=== PATIENT | female | born 1965 | race Caucasian/White ===

== ENCOUNTER 2019-03-07 19:08 | Emergency (ER) | payer MEDICAID ==
[2019-03-07 19:47] LABS: ABSOLUTE NEUTROPHIL COUNT 4.15; BASO % 0.9 % (0-6); EOS % 6.3 % (0-6); GRAN % 62.6 % (47-80); HEMATOCRIT 42.9 % (35.0-47.0); LYMPH % 19.8 % (16-45); MEAN CELL VOLUME 91.9 fl (81-97); MEAN CORPUSCULAR HGB CONC 32.6 g/dl (32-36); MEAN PLATELET VOLUME 9.6 fl (7.4-10.4); MONO % 10.4 % (0-9); PLATELET COUNT 268 K/uL (130-400); RED BLOOD COUNT 4.67 M/uL (3.80-5.40); RED CELL DISTRIBUTION WIDTH 12.4 % (11.5-14.5); WHITE BLOOD COUNT W/O DIFF 6.6 K/uL (4.2-12.2)
[2019-03-07 19:48] LABS: URINE APPEARANCE CLEAR; URINE BILIRUBIN NEGATIVE (NEGATIVE); URINE BLOOD NEGATIVE (NEGATIVE); URINE COLOR YELLOW; URINE GLUCOSE (UA) NEGATIVE (NEGATIVE); URINE KETONE NEGATIVE (NEGATIVE); URINE LEUKOCYTE ESTERASE NEGATIVE (NEGATIVE); URINE NITRITE NEGATIVE (NEGATIVE); URINE PROTEIN NEGATIVE (NEGATIVE)
[2019-03-07] MEDS: 0.9 % SODIUM CHLORIDE 1,000 ML BAG IV ONE (19:55)
[2019-03-07] MEDS: ONDANSETRON HCL IV 4 MG/2 ML VIAL IVP ONE (19:58)
[2019-03-07 19:59] LABS: BLOOD UREA NITROGEN 17 mg/dL (6-20); CREATININE 0.6 mg/dL (0.5-0.9); EST GLOMERULAR FILTRATION RATE > 60 mL/min
[2019-03-07 20:00] LABS: TOTAL PROTEIN 7.5 g/dL (6.6-8.7)
[2019-03-07 20:02] LABS: GLUCOSE,RANDOM 125 mg/dL (74-109)
--- NOTE | 2019-03-07 20:04 | Emergency Department Record ---
History of Present Illness - General Chief complaint: Female Urogenital Problem Stated complaint: CHILLS,NAUSEA,FLANK/PELVIC PAIN,CANT EAT,CANT SLEE Time Seen by Provider: 03/07/19 19:24 Source: Patient Mode of Arrival: Ambulatory Limitations: No limitations - History of Present Illness Initial comments: pt has multiple complaints. she states she doesnt feel well. she has n/v, cough,chest discomfort,ap, suparapubic pain, palpitations. she had an open fracture in november of her ankle. she just moved here. shes had chills, she had vaginal discharge but no longer MD Complaint: Pelvic pain Onset/Timin -: Week(s) Location: Suprapubic Radiation: L flank, R flank Severity: Moderate Severity scale (1-10): 4 Quality: Aching Consistency: Intermittent Improves with: None Worsens with: None Patient : No Associated Symptoms: Abdominal pain, Fever/chills, Loss of appetite, Nausea/vomiting, Vaginal discharge - Related Data Sexually active: Yes Home Medications Medication Instructions Recorded Confirmed Last Taken Atorvastatin Calcium 10 mg PO DAILY 03/07/19 03/07/19 03/07/19 Carvedilol [Coreg] 12.5 mg PO BID 03/07/19 03/07/19 03/07/19 Furosemide [Lasix] 20 mg PO DAILY 03/07/19 03/07/19 03/07/19 Hydrochlorothiazide [Hctz] 12.5 mg PO DAILY 03/07/19 03/07/19 03/07/19 Levothyroxine Sodium [Synthroid] 100 mcg PO DAILY 03/07/19 03/07/19 03/07/19 Allergies Allergy/AdvReac Type Severity Reaction Status Date / Time No Known Drug Allergies Allergy Verified 03/07/19 19:37 Travel Screening - Travel/Exposure Within Last 30 Days Have you traveled within the last 30 days?: No - Travel Symptoms Symptom Screening: Fever (Subjective), Vomiting, Chills Review of Systems Reviewed: No additional complaints except as noted below Constitutional: Reports: As per HPI, Chills. Denies: Fever, Malaise, Night sweats, Weakness, Weight change Eyes: Reports: As per HPI. Denies: Eye discharge, Eye pain, Photophobia, Vision change ENT: Reports: As per HPI. Denies: Congestion, Dental pain, Ear pain, Epistaxis, Hearing loss, Throat pain Respiratory: Reports: As per HPI, Cough. Denies: Dyspnea, Hemoptysis, Stridor, Wheezes Cardiovascular: Reports: As per HPI. Denies: Arrhythmia, Chest pain, Dyspnea on exertion, Edema, Murmurs, Orthopnea, Palpitations, Paroxysmal nocturnal dyspnea, Rheumatic Fever, Syncope Endocrine: Reports: As per HPI. Denies: Fatigue, Heat or cold intolerance, Polydipsia, Polyuria Gastrointestinal: Reports: As per HPI, Abdominal pain, Nausea, Vomiting. Denie s: Constipation, Diarrhea, Hematemesis, Hematochezia, Melena Genitourinary: Reports: As per HPI. Denies: Abnormal menses, Discharge, Dyspareunia, Dysuria, Frequency, Hematuria, Incontinence, Retention, Urgency Musculoskeletal: Reports: As per HPI. Denies: Arthralgia, Back pain, Gout, Joint swelling, Myalgia, Neck pain Skin: Reports: As per HPI. Denies: Bruising, Change in color, Change in hair/nails, Lesions, Pruritus, Rash Neurological: Reports: As per HPI. Denies: Abnormal gait, Confusion, Headache, Numbness, Paresthesias, Seizure, Tingling, Tremors, Vertigo, Weakness Psychiatric: Reports: As per HPI. Denies: Anxiety, Auditory hallucinations, Depression, Homicidal thoughts, Suicidal thoughts, Visual hallucinations Hematological/Lymphatic: Reports: As per HPI. Denies: Anemia, Blood Clots, Easy bleeding, Easy bruising, Swollen glands Past Medical History - SOCIAL HISTORY Smoking Status: Never smoker Alcohol Use: None Drug Use: None - RESPIRATORY Hx Respiratory Disorders: Yes Hx Pneumonia: Yes - CARDIOVASCULAR Hx Cardio Disorders: Yes Hx Abnormal EKG: Yes Hx Hypertension: Yes Comment:: Takotsubo cardiomyopathy - NEURO Hx Neuro Disorders: No - GI Hx GI Disorders: No - Hx Genitourinary Disorders: Yes Hx UTI: Yes - ENDOCRINE Hx Endocrine Disorders: No - MUSCULOSKELETAL Hx Musculoskeletal Disorders: No - PSYCH Hx Psych Problems: No - HEMATOLOGY/ONCOLOGY Hx Hematology/Oncology Disorders: No Family Medical History Any Significant Family History?: No Family Hx Comment (NOT TO BE USED IN PLACE OF ITEMS BELOW): denies Physical Exam - General General Appearance: Alert, Oriented x3, Cooperative, Mild distress - Head Head exam: Normal inspection - Eye Eye exam: Normal appearance, PERRL, EOMI Pupils: Normal accommodation - ENT ENT exam: Normal exam, Mucous membranes moist, Normal external ear exam, Normal orophraynx Ear exam: Normal external inspection. negative: External canal tenderness Nasal Exam: Normal inspection. negative: Discharge, Sinus tenderness Mouth exam: Normal external inspection, Tongue normal Teeth exam: Normal inspection. negative: Dental caries Throat exam: Normal inspection. negative: Tonsillar erythema, Tonsillar exudate - Neck Neck exam: Normal inspection, Full ROM. negative: Tenderness - Respiratory Respiratory exam: Normal lung sounds bilaterally. negative: Respiratory distress - Cardiovascular Cardiovascular Exam: Regular rate, Normal rhythm, Normal heart sounds - GI/Abdominal GI/Abdominal exam: Soft, Normal bowel sounds, Tenderness - Rectal Rectal exam: Deferred - exam: Deferred - Extremities Extremities exam: Normal inspection, Full ROM, Normal capillary refill. negative: Tenderness - Back Back exam: Reports: Normal inspection, Full ROM. Denies: Muscle spasm, Rash noted, Tenderness - Neurological Neurological exam: Alert, CN II-XII intact, Normal gait, Oriented X3 - Psychiatric Psychiatric exam: Normal affect, Normal mood - Skin Skin exam: Dry, Intact, Normal color, Warm Course Vital Signs 03/07/19 19:15 Temperature 98.6 F Pulse Rate [ 99 H Pulse Ox Probe] Respiratory 18 Rate Blood Pressure 132/78 [Left Arm] Pulse Ox 99 Medical Decision Making - Lab Data Result diagrams: 03/07/19 19:30 03/07/19 19:30 Lab Results 03/07/19 03/07/19 Range/Units 19:30 19:40 WBC 6.6 (4.2-12.2) K/uL RBC 4.67 (3.80-5.40) M/uL Hgb 14.0 (11.6-16.0) gm/dl Hct 42.9 (35.0-47.0) % MCV 91.9 (81-97) fl MCH 30.0 (27-33) pg MCHC 32.6 (32-36) g/dl RDW 12.4 (11.5-14.5) % Plt Count 268 (130-400) K/uL MPV 9.6 (7.4-10.4) fl Gran % 62.6 (47-80) % Lymphocytes % 19.8 (16-45) % Monocytes % 10.4 H (0-9) % Eosinophils % 6.3 H (0-6) % Basophils % 0.9 (0-6) % Absolute Neutrophils 4.15 Urine Color Yellow Urine Appearance Clear Urine pH 6.5 (5.0-8.0) Ur Specific Emerson 1.025 (1.002-1.030) Urine Protein Negative (NEGATIVE) Urine Glucose (UA) Negative (NEGATIVE) Urine Ketones Negative (NEGATIVE) Urine Blood Negative (NEGATIVE) Urine Nitrite Negative (NEGATIVE) Urine Bilirubin Negative (NEGATIVE) Urine Urobilinogen 1.0 (0.20 - 1.00) E.U./dL Ur Leukocyte Esterase Negative (NEGATIVE) Disposition Disposition: Discharge Clinical Impression: Pelvic pain Disposition: Home, Self-Care Condition: (1) Good Instructions: Pelvic Pain in Women (ED) Additional Instructions: follow up with family doctor and with gynecology. return sooner if worse. motrin for pain. if pain persists have pelvic ultrasound. Quality - Quality Measures Quality Measures: N/A - Blood Pressure Screening Does Patient Have Any of the Following: No Blood Pressure Classification: Pre-Hypertensive BP Reading Systolic Measurement: 132 Diastolic Measurement: 78 Screening for High Blood Pressure: < Pre-Hypertensive BP, F/U Documented > [G8950] Pre-Hypertensive Follow-up Interventions: Follow-up with rescreen every year.
[2019-03-07 20:05] LABS: ALB/GLOB RATIO 1.5 (1.1-1.8); ALBUMIN 4.5 g/dL (4.0-5.0); ALKALINE PHOSPHATASE 109 U/L (35-104); ALT/SGPT 17 U/L (<33); AST/SGOT 19 U/L (10.0-35.0)
[2019-03-07] MEDS: AZITHROMYCIN 500 MG TABLET PO ONE (21:45)
[2019-03-07] MEDS: CEFTRIAXONE 250 MG VIAL IM ONE (21:46)
--- NOTE | 2019-03-08 18:50 | CT SCAN REPORT ---
DATE: 03/07/2019 at 2027 hours. EXAM: CT OF THE ABDOMEN AND PELVIS WITHOUT CONTRAST. HISTORY: SUPRAPUBIC PAIN. TECHNIQUE: Noncontrast images are obtained from the dome of the diaphragm to the symphysis pubis. FINDINGS: Lung bases and pleural spaces are clear. The liver and gallbladder are normal. The pancreas and spleen are within normal limits. The adrenal glands are normal. Both kidneys demonstrate small intrarenal, nonobstructing calculi. There is no evidence of hydronephrosis. Both ureters are normal. The bladder is unremarkable. The stomach and small bowel are within normal limits. The colon appears normal. There is an unremarkable appendix present. There is no pelvic mass, adenopathy, or fluid collection. The bones are within normal limits for the patient's age. IMPRESSION: NONOBSTRUCTING INTRARENAL CALCULI. NO ACUTE INTRA-ABDOMINAL PROCESS. Job Number: [id number] MTDD
[2019-03-09 10:45] LABS: GC SPECIMEN TYPE Cervix
== END 2019-03-07 22:06 | disposition home or self-care (01) ==
LOC: ER 19:08
DX: R10.2 Pelvic and perineal pain (principal); R11.2 Nausea with vomiting, unspecified; N89.8 Other specified noninflammatory disorders of vagina; R07.89 Other chest pain; I10 Essential (primary) hypertension
CPT/HCPCS: 74176; 80053; 81003; 84484; 85025; 87210; 93005; 93010; 96361; 96374; 96375; 99284; J2405; J7030

== ENCOUNTER 2019-07-03 03:55 | Emergency (ER) | payer MEDICAID ==
--- NOTE | 2019-07-03 04:25 | Emergency Department Record ---
History of Present Illness - General Chief Complaint: Difficulty Breathing Stated Complaint: JOSEMANUEL Time Seen by Provider: 07/03/19 04:11 Source: Patient Mode of Arrival: Ambulatory Limitations: No limitations - History of Present Illness Initial Comments: The patient is here due to multiple complaints. She has not felt well for a day and could not sleep. Since yesterday afternoon she had intermittent dyspnea which seemed to be worse with walking up the stairs. The patient felt restless and could not sleep and then about an hour ago she developed L arm aching and mild pressure to her upper back and upper chest. Along with the pressure she developed sweating and nausea. The patient states she had similar symptoms a couple of years ago when she was diagnosed with Takysubo's Cardiomyopathy. At that time she did have a heart cath that was normal but was told she did have an KS. Presently she is feeling better with no CP, pressure, arm aching or SOB. MD Complaint: Shortness of breath Onset/Timin -: Hour(s) Radiation: Back, Left arm Severity: Moderate Severity scale (1-10): 5 Quality: Aching, Dull Consistency: Intermittent Improves With: Nothing Worsens With: Nothing Associated Symptoms: Cough, Nausea/vomiting Treatments Prior to Arrival: None - Related Data Home Oxygen Therapy: No Home Medications Medication Instructions Recorded Confirmed Last Taken Hydroxyzine HCl 1 tab PO TID PRN 07/03/19 07/03/19 Unknown Allergies Allergy/AdvReac Type Severity Reaction Status Date / Time No Known Drug Allergies Allergy Verified 07/03/19 04:08 Travel Screening - Travel/Exposure Within Last 30 Days Have you traveled within the last 30 days?: No - Travel/Exposure Within Last Year Have you traveled outside the [place] in the last year?: No - Additonal Travel Details Have you been exposed to anyone with a communicable illness?: No - Travel Symptoms Symptom Screening: None Review of Systems Constitutional: Denies: Chills, Fever Eyes: Denies: Eye discharge ENT: Denies: Congestion Respiratory: Reports: Dyspnea. Denies: Cough Cardiovascular: Reports: Dyspnea on exertion. Denies: Arrhythmia, Chest pain Endocrine: Denies: Fatigue Gastrointestinal: Denies: Nausea Genitourinary: Denies: Dysuria Musculoskeletal: Denies: Arthralgia Neurological: Denies: Abnormal gait Past Medical History - SOCIAL HISTORY Smoking Status: Never smoker Alcohol Use: Occasional Drug Use: Occasional Drug Use Detail:: Marijuana - RESPIRATORY Hx Respiratory Disorders: Yes Hx Pneumonia: Yes - CARDIOVASCULAR Hx Cardio Disorders: Yes Hx Abnormal EKG: Yes Hx Hypertension: Yes Comment:: Takotsubo cardiomyopathy - NEURO Hx Neuro Disorders: No - GI Hx GI Disorders: No - Hx Genitourinary Disorders: Yes Hx UTI: Yes - ENDOCRINE Hx Endocrine Disorders: Yes Hx Thyroid Disease: Yes - MUSCULOSKELETAL Hx Musculoskeletal Disorders: No - PSYCH Hx Psych Problems: No - HEMATOLOGY/ONCOLOGY Hx Hematology/Oncology Disorders: No Family Medical History Any Significant Family History?: No Family Hx Comment (NOT TO BE USED IN PLACE OF ITEMS BELOW): denies Physical Exam - General General Appearance: Alert, Oriented x3, Cooperative, No acute distress - Head Head exam: Atraumatic, Normocephalic, Normal inspection - Eye Eye exam: Normal appearance, PERRL, EOMI - ENT Throat exam: Normal inspection. negative: Tonsillar erythema, Tonsillar exudate - Neck Neck exam: Normal inspection, Full ROM. negative: Tenderness - Respiratory Respiratory exam: Normal lung sounds bilaterally. negative: Respiratory distress - Cardiovascular Cardiovascular Exam: Regular rate, Normal rhythm, Normal heart sounds. negative: Diastolic murmur, Systolic murmur - GI/Abdominal GI/Abdominal exam: Soft, Normal bowel sounds. negative: Tenderness - Extremities Extremities exam: Normal inspection, Full ROM, Normal capillary refill. negative: Tenderness - Neurological Neurological exam: Alert, Normal gait. negative: Abnormal gait, Motor sensory deficit - Psychiatric Psychiatric exam: Anxious Course Vital Signs 07/03/19 04:00 Temperature 98.5 F Pulse Rate [ 84 Pulse Ox Probe] Respiratory 20 Rate Blood Pressure 143/73 [Left Arm] Pulse Ox 98 - Reevaluation(s) Reevaluation #1: The patient is doing well at this time. She denies any pain or pressure at this time. I did discuss the lab abnormalities and focal finding on the xray. The patient states the xray report is chronic and normal for her. I then said the safest course of action is to compare xrays now with old xrays or obtain a chest CT as an outpatient when she gets home next week to [place]. The patient is aware and will F/U. Due to the nature of her chest complaints and hx of cardiac issues I did recommend hospital admission to [facility] [place] further testing and she did agree with the plan. We will initiate transfer. 07/03/19 04:57 Reevaluation #2: I did discuss the case with Dr. Vincent at [facility] and he does accept the patient in transfer. 07/03/19 05:05 Medical Decision Making - Data Complexity MDM Data: Labs Ordered and/or Reviewed, X-Ray Ordered and/or Reviewed - Lab Data Result diagrams: 07/03/19 04:15 07/03/19 04:15 - EKG Data -: EKG Interpreted by Me EKG: No Acute Changes, Unchanged From Previous - Radiology Data Radiology results: Report reviewed (CXR: Focal opacity L mid lung, Nodule vs small infiltrate. Rec F/U. Patient aware and states it is chronic.) Disposition Disposition: Transfer Clinical Impression: Pressure in chest Disposition: Acute Care Hospital Transfer Transfer To: [facility] Reason For Transfer: Cardiology Accepting Physician: Carlton Time Discussed w/Accepting Physician: 05:06 Condition: (2) Stable Forms: Patient Portal Access Time of Disposition: 05:06 Quality - Quality Measures Quality Measures: N/A - Blood Pressure Screening View Details: Yes Does Patient Have Any of the Following: Active Dx of HTN Blood Pressure Classification: Hypertensive Reading Systolic Measurement: 143 Diastolic Measurement: 73 Screening for High Blood Pressure: Patient Exclusion, Hx of HTN [G9744]
[2019-07-03 04:27] LABS: ABSOLUTE NEUTROPHIL COUNT 2.92; BASO % 0.5 % (0-6); EOS % 4.8 % (0-6); GRAN % 50.5 % (47-80); HEMATOCRIT 41.2 % (35.0-47.0); HEMOGLOBIN 13.1 gm/dl (11.6-16.0); LYMPH % 32.6 % (16-45); MEAN CELL VOLUME 93.8 fl (81-97); MEAN CORPUSCULAR HEMOGLOBIN 29.8 pg (27-33); MEAN CORPUSCULAR HGB CONC 31.8 g/dl (32-36); MONO % 11.6 % (0-9); PLATELET COUNT 249 K/uL (130-400); RED BLOOD COUNT 4.39 M/uL (3.80-5.40); RED CELL DISTRIBUTION WIDTH 12.9 % (11.5-14.5); WHITE BLOOD COUNT W/O DIFF 5.8 K/uL (4.2-12.2)
[2019-07-03 04:34] LABS: BLOOD UREA NITROGEN 18 mg/dL (6-20)
[2019-07-03 04:35] LABS: CREATININE 0.9 mg/dL (0.5-0.9); EST GLOMERULAR FILTRATION RATE > 60 mL/min; TOTAL PROTEIN 6.9 g/dL (6.6-8.7)
[2019-07-03 04:37] LABS: GLUCOSE,RANDOM 125 mg/dL (74-109)
[2019-07-03 04:40] LABS: ALB/GLOB RATIO 1.2 (1.1-1.8); ALBUMIN 3.7 g/dL (4.0-5.0); ALKALINE PHOSPHATASE 107 U/L (35-104); ALT/SGPT 65 U/L (<33); AST/SGOT 50 U/L (10.0-35.0)
[2019-07-03 04:42] LABS: NTpro B-NATRIURETIC PEPTIDE 46.05 pg/mL (<125)
--- NOTE | 2019-07-03 04:44 | RADIOLOGY REPORT ---
EXAMINATION: Two View Chest Radiographs EXAM DATE: 07/03/2019 4:39 AM TECHNIQUE: Frontal and lateral views INDICATION: JOSEMANUEL COMPARISON: 03/07/2019 ENCOUNTER: Not applicable FINDINGS: The heart, mediastinum, and pulmonary vasculature are normal. Focal opacity is noted in the left midl jose maria. No other lung consolidation or pleural effusions are present. IMPRESSION: 1. Focal opacity in the left midlung which could be secondary to a nodule or mild infiltrate. Dictated by: Dalia Barnes MD on 07/03/2019 4:40 AM. .
[2019-07-03] MEDS ORDERED: ASPIRIN 325 MG TABLET PO ONE (04:52)
== END 2019-07-03 05:40 | disposition short-term general hospital (02) ==
LOC: ER 03:55
DX: R07.89 Other chest pain (principal); R06.02 Shortness of breath; R11.0 Nausea; I10 Essential (primary) hypertension; I25.2 Old myocardial infarction
CPT/HCPCS: 71046; 80053; 83880; 84484; 85025; 93005; 93010; 99285